=== PATIENT | male | born 1965 | race American Indian/Alaskan Native ===

== ENCOUNTER 2019-11-21 16:18 | Emergency (ER) | payer SELFPAY ==
[2019-11-21 17:54] VITALS: BP 121/74
--- NOTE | 2019-11-21 18:12 | Emergency Department Report ---
Chief Complaint: Extremity Problem,Nontraumatic Stated Complaint: LEGS HURT PAIN Time Seen by Provider: 11/21/19 18:10 - HPI History of Present Illness: pt is a 53 yo male who presents to the ED with c/o chronic bilateral foot pain. he states that he walked three miles today and that exacerbated his foot pain. he denies any edema, numbness, weakness. he is ambulatory. he denies any PMHx or allergies to meds vitals are stable, very mild tachycardia on exam: No tenderness to palpation of the bilateral ankle, foot, toes, has no edema, no skin changes, no ulcerations, no erythema, neurovascularly intact, full range of motion of the bilateral ankles, bilateral feet, bilateral toes No clinical signs or symptoms of cellulitis, ulceration, DVT, vascular deficiency, acute trauma, infection Patient is presenting with a non-medical emergency at this time Medical screening examination performed and there is no threat to life or limb at this time will have patient follow-up with a primary care provider advised pt may take tylenol or ibuprofen for discomfort. may rest, elevate the legs, ice. follow up with a primary care doctor in the next 2-3 days. return to the emergency room for any new or worsening symptoms. - Exam Vital Signs: Vital Signs 11/21/19 17:53 Temperature 97.4 F L Pulse Rate 102 H Respiratory 12 Rate Blood Pressure 121/74 O2 Sat by Pulse 100 Oximetry MSE screening note: Focused history and physical exam performed. ED Disposition for MSE Clinical Impression: Chronic foot pain Qualifiers: Laterality: unspecified laterality Qualified Code(s): M79.673 - Pain in unspecified foot Disposition: Z-07 MED SCREENING EXAM-LEFT Is pt being admited?: No Does the pt Need Aspirin: No Condition: Stable Instructions: Arthralgia (ED) Additional Instructions: may take tylenol or ibuprofen for discomfort. may rest, elevate the legs, ice. follow up with a primary care doctor in the next 2-3 days. return to the emergency room for any new or worsening symptoms. Referrals: DERRELL CHRISTINA MD [Staff Physician] - 2-3 Days [facility] [Outside] - 2-3 Days Time of Disposition: 18:11 Print Language: OCCITAN
== END 2019-11-22 02:29 | disposition left against medical advice (07) ==
LOC: ED 16:18
DX: M79.671 Pain in right foot (principal); M79.672 Pain in left foot; R00.0 Tachycardia, unspecified; G89.29 Other chronic pain
CPT/HCPCS: 99281